=== PATIENT | male | born 1960 | race Two or more races ===

== ENCOUNTER → 2018-09-03 | Outpatient (CLI) | payer BC, OTHER ==
--- NOTE | 2018-09-08 13:08 | XCELERA REPORT ---
[address] [place] [facility] [address] Tel: [phone] Fax: [phone] Lower Extremity Venous Evaluation Procedure: Complete right sided evaluation for reflux. Right Sided Venous Evaluation Deep venous system evaluation shows patent veins extensive reflux identified. Saphena Femoral junction: no reflux. Common Femoral vein reflux: 2 second reflux. Femoral vein reflux: 2 second reflux. Popliteal vein reflux: 1 second reflux. Greater Saphenous vein,absent from prior procedure. No significant Perforators identified. Interpretation Summary No Deep vein thrombosis identified. Absence of greater saphenous vein. Extensive deep vein reflux. Name: NICOLE BRADLEY Age: 57 yrs Gender: Male : 1960 Patient Status: Outpatient Patient Location: Study Date: 09/03/2018 03:07 PM Reason For Study: VARICOSE VEIN INFLAMMATION Ordering Physician: GURJIT DORSEY Performed By: Ariel Christopher : GURJIT DORSEY > Gurjit Dorsey
== END ==
LOC: SP 14:31
PROVIDERS: ATTEND Surgery
DX: I87.2 Venous insufficiency (chronic) (peripheral) (principal)
CPT/HCPCS: 93970

== ENCOUNTER → 2020-02-12 | Outpatient (CLI) | payer BC ==
--- NOTE | 2020-02-12 14:34 | DRAGON STRESS TEST REPORT ---
EXERCISE CARDIOLITE STRESS TEST USING SINGLE PHOTON EMMISION COMPUTERIZED TOMOGRAPHIC. DATE OF PROCEDURE: February 12, 2020 INDICATION : Chest pain CARDIAC RISK FACTORS: Hypertension RESTING EKG: Sinus rhythm without any baseline ST segment changes REASON FOR TERMINATION: Dyspnea and fatigue. PROCEDURE REPORT: Baseline heart rate 60 beats per minute with blood pressure of 134/87. Patient had no significant complaints. Patient was exercised on a standard Ezra protocol. Patient exercised for a total of 8.01 minutes. Peak heart rate 137 which is 84% of predicted maximum. Peak blood pressure 181/69. Double product was noted to be adequate kcal. No significant EKG changes were noted. Patient had no significant complaints during the procedure or postprocedure. IMPRESSION EXERCISE PART: Average exercise tolerance for patient age. No significant EKG ST segment changes with exercise. NUCLEAR DATA: At rest the patient was given 12.99 millicuries of technetium 99 sestamibi injected intravenously. As per protocol rest gated SPECT images were obtained. Subsequently the stress dose of 36.9 millicuries of technetium 99 sestamibi was injected intravenously at peak exercise and patient continued to exercise for 1 to 2 additional minute. As per protocol stress gated images were obtained. NUCLEAR INTERPRETATION: Both raw and processed data were used for interpretation. Visual, qualitative, computer-generated quantitative data was used. There was good myocardial uptake of technetium compound. Motion artifact and soft tissue attenuations were noted. Increased visceral uptake was noted. No definitive areas of transient perfusion defect noted. No definitive areas of fixed perfusion defect or scars noted. EKG gated imaging showed LV EF at 58%, rest and stress gated EF similar visually. T. I D. ratio was 0.93. Lung heart ratio noted to be within normal limits 0.30. No significant extracardiac and abnormal radiotracer activities were noted. RV free wall uptake was noted to be WNL. IMPRESSION: Also refer to comments under nuclear interpretation. Also test results needs to be interpreted in the context of pretest probability. 1. There is no definitive scintigraphic evidence of exercise induced myocardial ischemia at achieved double product. 2. There is no definitive scintigraphic evidence of myocardial infarction/scar. 3. EKG gated imaging shows left ejection fraction of approximately 58%. 4. Patient noted to have average exercise tolerance. Patient had almost adequate heart rate response. BP response adequate . No significant EKG changes were noted with exercise at adequate double product. RECOMMENDATIONS: Aggressive risk factor modification, medical therapy. Further evaluation may be needed if patient continues with significant symptoms or has other high risk features. Clinical correlation with echocardiogram derived ejection fraction. Consider cardiology consultation and or follow-up if clinically indicated. I AM AVAILABLE FOR CARDIOLOGY CONSULTATION AND FOLLOWUP IF REQUESTED BY PMD Marlen Hernandez M.D., [facility]ENTER[facility]is[facility] Employment Manager cash management associate, Board certified in cardiovascular diseases, Nuclear cardiology, Echocardiography Cardiac CT and cardiac MRI Ph. [phone] [facility]
== END ==
LOC: RAD 06:49
PROVIDERS: ATTEND Internal Medicine
DX: R94.31 Abnormal electrocardiogram [ECG] [EKG] (principal)
CPT/HCPCS: 93017; 78452; A9500; Q9969